=== PATIENT | male | born 1930 | race Caucasian/White ===

== ENCOUNTER 2016-10-13 15:17 | Inpatient (IN) | payer OTHER ==
[2016-10-13] MEDS ORDERED: ARICEPT10 M2 PO (15:36)
[2016-10-13] MEDS ORDERED: COLACE100 M1 PO (15:36)
[2016-10-13] MEDS ORDERED: TYLENOL325 M2 PO (15:36)
[2016-10-13] MEDS ORDERED: TENORMIN50 M1 PO (15:36)
[2016-10-13] MEDS ORDERED: VITAMIN B-12250 MC2 PO (15:37)
[2016-10-13] MEDS ORDERED: ULTRAM50 M1 PO (15:37)
[2016-10-13] MEDS ORDERED: FLOMAX0.4 M1 PO ×2 (15:37→20:44)
[2016-10-13] MEDS ORDERED: ASPIRIN EC81 MG PO (15:37)
[2016-10-13 16:08] LABS: URINE APPEARANCE CLOUDY; URINE BILIRUBIN NEGATIVE (NEG); URINE BLOOD LARGE (NEG); URINE COLOR YELLOW; URINE GLUCOSE (UA) NEGATIVE (NEG); URINE KETONE NEGATIVE (NEG); URINE LEUKOCYTE ESTERASE POSITIVE (NEG); URINE NITRITE NEGATIVE (NEG); URINE PROTEIN MODERATE (NEG); URINE SPECIFIC GRAVITY 1.015 (1.003-1.030)
[2016-10-13 16:15] LABS: URINE AMORPHOUS 2+; URINE MUCUS 1+; URINE RBC FULL FIELD /[HPF] (0-5)
[2016-10-13 16:25] LABS: BASO % 0.4 % (0-2); EOS % 1.9 % (0-7); EOSINOPHIL ABSOLUTE COUNT 0.1 tho/cmm (0.0-0.7); HCT-HEMATOCRIT 32.2 % (36.0-53.5); HGB-HEMOGLOBIN 11.3 gm/dl (13.5-17.0); IMMATURE GRANULOCYTES ABSOLUTE 0.01 tho/cmm (0-0.03); IMMATURE GRANULOCYTES PERCENT 0.2 % (0-0.3); LYMPH ABSOLUTE COUNT 0.7 tho/cmm (0.8-4.5); MCH (MEAN CORPUSCULAR HGB) 31.7 pg (28.0-32.0); MCHC MEAN CORPUSCULAR HGB CONC 35.1 % (32.0-36.0); MCV (MEAN CELL VOLUME) 90.4 fl (82.0-96.0); MEAN PLATELET VOLUME 8.2 cmc (9.4-12.4); MONO % 12.9 % (0-12); MONOCYTE ABSOLUTE COUNT 0.6 tho/cmm (0.0-1.2); NEUTROPHIL ABSOLUTE COUNT 3.3 tho/cmm (1.6-8.0); NEUTROPHIL-AUTOMATED 3.3 tho/cmm (1.6-8.0); NEUTROPHILS % 69.6 % (40-80); PLATELET COUNT 131 tho/cmm (150-450); RED BLOOD COUNT 3.56 mil/cmm (4.40-5.70); RED CELL DISTRIBUTION WIDTH 13.4 % (12.4-16.4); WHITE BLOOD COUNT 4.7 tho/cmm (4.0-10.0)
[2016-10-13 16:29] LABS: INR 1.1 INR (0.9-1.1); PROTHROMBIN TIME 12.6 SECONDS (9.0-13.6)
[2016-10-13 16:42] LABS: ALB/GLOB RATIO 0.6 (0.8-2.0); ALBUMIN 2.9 g/dl (3.5-5.0); ALKALINE PHOSPHATASE 62 U/L (33-138); ANION GAP 15 mmol/L (0-20); AST/SGOT 9 U/L (10-40); BILIRUBIN,TOTAL 0.5 mg/dl (0.0-1.5); BLOOD UREA NITROGEN 89 mg/dl (6-24); CALCIUM 8.1 mg/dl (8.5-10.5); CARBON DIOXIDE-VENOUS 25 mmol/L (22-32); CHLORIDE 101 mmol/l (96-110); CREATININE 8.13 mg/dl (0.60-1.30); GLUCOSE 98 mg/dL (70-110); POTASSIUM 4.5 mmol/L (3.7-5.1); SODIUM 136 mmol/L (135-145); eGFR VALUE FOR BLACK 6 mL/Min
[2016-10-13 16:43] LABS: ALT/SGPT 9 U/L (12-78)
[2016-10-13 19:18] LABS: MAGNESIUM 2.6 mg/dl (1.3-2.6); PHOSPHOROUS 5.2 mg/dl (2.5-4.9)
[2016-10-13] MEDS ORDERED: ALEVE220 M3 PO (20:38)
[2016-10-14 01:39] LABS: BLOOD UREA NITROGEN 68 mg/dl (6-24); CALCIUM 7.9 mg/dl (8.5-10.5); CARBON DIOXIDE-VENOUS 24 mmol/L (22-32); CHLORIDE 109 mmol/l (96-110); GLUCOSE 116 mg/dL (70-110); SODIUM 141 mmol/L (135-145); eGFR VALUE FOR BLACK 13 mL/Min
[2016-10-14 01:44] LABS: ANION GAP 12 mmol/L (0-20); CREATININE 4.38 mg/dl (0.60-1.30); POTASSIUM 3.6 mmol/L (3.7-5.1)
[2016-10-14 05:29] LABS: BASO % 0.5 % (0-2); EOSINOPHIL ABSOLUTE COUNT 0.1 tho/cmm (0.0-0.7); HCT-HEMATOCRIT 30.1 % (36.0-53.5); HGB-HEMOGLOBIN 10.4 gm/dl (13.5-17.0); LYMPH % 26.1 % (20-45); MCH (MEAN CORPUSCULAR HGB) 31.1 pg (28.0-32.0); MCHC MEAN CORPUSCULAR HGB CONC 34.6 % (32.0-36.0); MCV (MEAN CELL VOLUME) 90.1 fl (82.0-96.0); MONO % 12.3 % (0-12); MONOCYTE ABSOLUTE COUNT 0.5 tho/cmm (0.0-1.2); NEUTROPHIL ABSOLUTE COUNT 2.3 tho/cmm (1.6-8.0); NEUTROPHIL-AUTOMATED 2.3 tho/cmm (1.6-8.0); NEUTROPHILS % 58.1 % (40-80); PLATELET COUNT 115 tho/cmm (150-450); RED BLOOD COUNT 3.34 mil/cmm (4.40-5.70); RED CELL DISTRIBUTION WIDTH 13.5 % (12.4-16.4)
[2016-10-14 05:47] LABS: ANION GAP 13 mmol/L (0-20); BLOOD UREA NITROGEN 55 mg/dl (6-24); CALCIUM 7.7 mg/dl (8.5-10.5); CARBON DIOXIDE-VENOUS 23 mmol/L (22-32); CHLORIDE 111 mmol/l (96-110); GLUCOSE 93 mg/dL (70-110); POTASSIUM 3.7 mmol/L (3.7-5.1); SODIUM 143 mmol/L (135-145); eGFR VALUE FOR BLACK 19 mL/Min
[2016-10-14 05:59] LABS: CREATININE 3.21 mg/dl (0.60-1.30)
--- NOTE | 2016-10-14 13:46 | NUR ---
VN ROUNDING NOTE-PATIENT LAYING IN BED COMFORTABLY AND STATES PAIN IS DOING FINE. HE SAYS HE IS FEELING BETTER WITH THE CATHETER IN AND UNDERSTANDS HE MAY NEED TO HAVE THE GANT CATH IN FOR HOME. HE STATES HE KNOWS HOW TO TAKE CARE OF THE LEG BAG AND CATH HE HAS HAD ONE IN THE PAST AND IT WORKED WELL. HE IS HOPING TO GO HOME TOMORROW AND HAS NO FURTHER QUESTIONS OR CONCERNS. CHART REVIEWED.
[2016-10-14 19:49] LABS: BASO % 0.5 % (0-2); EOS % 2.3 % (0-7); EOSINOPHIL ABSOLUTE COUNT 0.1 tho/cmm (0.0-0.7); HCT-HEMATOCRIT 31.7 % (36.0-53.5); HGB-HEMOGLOBIN 10.7 gm/dl (13.5-17.0); IMMATURE GRANULOCYTES ABSOLUTE 0.02 tho/cmm (0-0.03); IMMATURE GRANULOCYTES PERCENT 0.5 % (0-0.3); LYMPH % 23.8 % (20-45); LYMPH ABSOLUTE COUNT 1.1 tho/cmm (0.8-4.5); MCHC MEAN CORPUSCULAR HGB CONC 33.8 % (32.0-36.0); MCV (MEAN CELL VOLUME) 91.9 fl (82.0-96.0); MEAN PLATELET VOLUME 8.2 cmc (9.4-12.4); MONO % 12.2 % (0-12); MONOCYTE ABSOLUTE COUNT 0.5 tho/cmm (0.0-1.2); NEUTROPHIL ABSOLUTE COUNT 2.7 tho/cmm (1.6-8.0); NEUTROPHIL-AUTOMATED 2.7 tho/cmm (1.6-8.0); NEUTROPHILS % 60.7 % (40-80); PLATELET COUNT 138 tho/cmm (150-450); RED BLOOD COUNT 3.45 mil/cmm (4.40-5.70); RED CELL DISTRIBUTION WIDTH 13.5 % (12.4-16.4); WHITE BLOOD COUNT 4.4 tho/cmm (4.0-10.0)
[2016-10-14 20:01] LABS: ANION GAP 9 mmol/L (0-20); BLOOD UREA NITROGEN 33 mg/dl (6-24); CALCIUM 7.8 mg/dl (8.5-10.5); CARBON DIOXIDE-VENOUS 29 mmol/L (22-32); CHLORIDE 111 mmol/l (96-110); GLUCOSE 111 mg/dL (70-110); POTASSIUM 4.3 mmol/L (3.7-5.1); SODIUM 145 mmol/L (135-145); eGFR VALUE FOR BLACK 39 mL/Min
[2016-10-14 20:04] LABS: CREATININE 1.78 mg/dl (0.60-1.30)
--- NOTE | 2016-10-14 21:15 | NUR ---
VIRTUAL CARE NOTE: ASSESSMENT DEFERRED. PT. SLEEPING.
[2016-10-15 05:59] LABS: BASO % 0.7 % (0-2); EOS % 2.9 % (0-7); EOSINOPHIL ABSOLUTE COUNT 0.1 tho/cmm (0.0-0.7); HCT-HEMATOCRIT 29.4 % (36.0-53.5); HGB-HEMOGLOBIN 9.9 gm/dl (13.5-17.0); IMMATURE GRANULOCYTES ABSOLUTE 0.01 tho/cmm (0-0.03); IMMATURE GRANULOCYTES PERCENT 0.2 % (0-0.3); LYMPH % 32.1 % (20-45); LYMPH ABSOLUTE COUNT 1.4 tho/cmm (0.8-4.5); MCHC MEAN CORPUSCULAR HGB CONC 33.7 % (32.0-36.0); MCV (MEAN CELL VOLUME) 92.2 fl (82.0-96.0); MEAN PLATELET VOLUME 8.2 cmc (9.4-12.4); MONOCYTE ABSOLUTE COUNT 0.4 tho/cmm (0.0-1.2); NEUTROPHIL ABSOLUTE COUNT 2.3 tho/cmm (1.6-8.0); NEUTROPHIL-AUTOMATED 2.3 tho/cmm (1.6-8.0); NEUTROPHILS % 55.1 % (40-80); PLATELET COUNT 135 tho/cmm (150-450); RED BLOOD COUNT 3.19 mil/cmm (4.40-5.70); RED CELL DISTRIBUTION WIDTH 13.4 % (12.4-16.4); WHITE BLOOD COUNT 4.2 tho/cmm (4.0-10.0)
[2016-10-15 06:10] LABS: ANION GAP 11 mmol/L (0-20); BLOOD UREA NITROGEN 22 mg/dl (6-24); CALCIUM 7.5 mg/dl (8.5-10.5); CARBON DIOXIDE-VENOUS 25 mmol/L (22-32); CHLORIDE 113 mmol/l (96-110); GLUCOSE 93 mg/dL (70-110); POTASSIUM 3.6 mmol/L (3.7-5.1); SODIUM 145 mmol/L (135-145); eGFR VALUE FOR BLACK 70 mL/Min
--- NOTE | 2016-10-15 13:53 | NUR ---
VIRTUAL CARE NOTE: PT SITTING ON CHAIR, FAMILY IN THE ROOM READY FOR DISCHARGE INSTRUCTIONS. INFORMATION GIVEN TO PT ALL QUESTIONS ANSWERED TO DAUGHTER-AUGUSTIN. PT WILL DC HOME WITH [facility] AND WILL F/U WITH [facility] AND UROLOGIST SCHEDULED. DAUGHTER AND PT DENIED FURTHER QUESTIONS. INFORMED FLOOR NURSE DISCHARGE TEACHING ALL DONE.
== END 2016-10-15 14:20 | disposition home health service (06) | DRG 683 ==
LOC: EDMED 15:17 → EMR2 17:57 → 5WD 20:18
PROVIDERS: Emergency Medicine; Family Medicine; Urology; ADMIT Internal Medicine
DX: N17.9 Acute kidney failure, unspecified (principal); E46 Unspecified protein-calorie malnutrition; F03.90 Unspecified dementia, unspecified severity, without behavioral disturbance, psychotic disturbance, mood disturbance, and anxiety; I65.23 Occlusion and stenosis of bilateral carotid arteries; I27.2 Other secondary pulmonary hypertension; R55 Syncope and collapse; R33.9 Retention of urine, unspecified; N40.0 Benign prostatic hyperplasia without lower urinary tract symptoms; I10 Essential (primary) hypertension; G89.29 Other chronic pain; M25.512 Pain in left shoulder; I51.7 Cardiomegaly; I35.0 Nonrheumatic aortic (valve) stenosis; N28.1 Cyst of kidney, acquired; Z79.82 Long term (current) use of aspirin; Z68.29 Body mass index [BMI] 29.0-29.9, adult; D64.9 Anemia, unspecified; M19.90 Unspecified osteoarthritis, unspecified site; H91.90 Unspecified hearing loss, unspecified ear; Z96.653 Presence of artificial knee joint, bilateral
CPT/HCPCS: G8978-GP-CK; G8979-GP-CJ; J0360; J0696; J1650; J7030